=== PATIENT | female | born 1995 | race Hispanic/Latino ===

== ENCOUNTER 2017-12-10 18:38 | Emergency (ER) | payer SELFPAY ==
[2017-12-10 19:27] LABS: Absolute Lymphocytes (CBC) 2.5 K/uL (0.7-4.9); Absolute Monocytes 0.5 K/uL (0.1-1.3); Absolute Neutrophil 4.6 K/uL (1.8-8.0); Basophils % 0.8 % (0-1.3); Hematocrit 35.7 % (36.0-45.0); Lymphocytes % 31.6 % (15.3-44.8); MCH 30.1 pg (27.0-35.0); MCV 87.4 fL (80-100); MPV 9.3 fL (7.6-11.3); Monocytes % 5.8 % (3.3-12.3); RBC Red Blood Cell Count 4.08 M/uL (3.86-4.86)
[2017-12-10] MEDS ORDERED: PROMETHAZINE 25 MG/ML VIAL ONE (19:28)
[2017-12-10] MEDS ORDERED: MEPERIDINE HCL 25 MG/0.5 ML ONE (19:28)
[2017-12-10 19:48] LABS: BUN Blood Urea Nitrogen 9 mg/dL (7-18); Bicarbonate 28 mmol/L (21-32); Glucose Level 91 mg/dL (74-106); HCG, Quantitative 5082 mIU/mL (1-3); Potassium 3.7 mmol/L (3.5-5.1); Sodium Level 140 mmol/L (136-145)
[2017-12-10 20:03] LABS: Urine Blood 3+ (NEG); Urine Glucose NEGATIVE (NEG); Urine Protein 2+ (NEG); Urine Specific Gravity 1.015 (1.005-1.030)
--- NOTE | 2017-12-10 20:29 | RAD REPORT ---
EXAM DESCRIPTION: US - Transvaginal OB - 12/10/2017 8:04 pm CLINICAL HISTORY: Abdominal pain, vaginal bleeding, positive test COMPARISON: December 02 FINDINGS: A 5 week 3 day sized gestational sac is identified irregular in shape. There is a yolk sac now identified but no pole. Small subchorionic hemorrhage remains. No other hematoma, mass or suspicious finding within the endometrial cavity. Both ovaries are identified and show normal blood f low on Doppler evaluation. An 8 millimeter cyst seen in the left ovary. No suspicious adnexal finding . IMPRESSION: A 5 week 3 day sized irregular gestational sac seen now with yolk sac but no pole. Development of the yolk sac is progression from December 02; however, the sac has not progressed in size as expected for 8 day interval between studies. No new or enlarging hemorrhage within the uterus and no suspicious adnexal finding.
--- NOTE | 2017-12-10 22:04 | ER ---
Nurse's Notes [facility] Name: Carlota Rock Age: 22 yrs Sex: Female : 1995 Arrival Date: 12/10/2017 Time: 18:43 Bed 17 Private MD: Diagnosis: Spontaneous Presentation: 12/10 18:47 Presenting complaint: Patient states: lower abd pain and vaginal bleeding since 11/29/17. Pt reports she is currently 5 weeks and 5 days , and was seen by Dr. Isabel yesterday, had an ultrasound, was told that the baby was there, but unsure whether or not if she is having a miscarriage and still has unexplained bleeding. Given Amoxicillin for unknown infection. Transition of care: patient was not received from another setting of care. Onset of symptoms was November 29, 2017. Risk Assessment: Do you want to hurt yourself or someone else? Patient reports no desire to harm self or others. Initial Sepsis Screen: Does the patient meet any 2 criteria? No. Patient's initial sepsis screen is negative. Does the patient have a suspected source of infection? No. Patient's initial sepsis screen is negative. Care prior to arrival: None. 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 - Social history:: Smoking status: Patient/guardian denies using tobacco. - Ebola Screening: : Patient denies exposure to infectious person Patient denies travel to an Ebola-affected area in the 21 days before illness onset. Screenin:10 Abuse screen: Denies threats or abuse. Denies injuries from another. Nutritional ch screening: No deficits noted. Tuberculosis screening: No symptoms or risk factors identified. Fall Risk None identified. Assessment: 18:55 : Reports pain in right in left in suprapubic area vaginal bleeding that is bright ch red, moderate flow. 19:10 General: Appears in no apparent distress. comfortable, Behavior is calm, cooperative, ch appropriate for age. Pain: Complains of pain in suprapubic area, right lower quadrant, left lower quadrant and pelvis Pain currently is 10 out of 10 on a pain scale. Pain began suddenly. Neuro: No deficits noted. Respiratory: Airway is patent Respiratory effort is even, unlabored, Respiratory pattern is regular, Breath sounds are clear bilaterally. GI: Abdomen is round non-distended, Bowel sounds present X 4 quads. Abd is soft X 4 quads Abdomen is tender to palpation in suprapubic area, right lower quadrant and left lower quadrant. 19:22 Reassessment: Patient appears in no apparent distress at this time. No changes from [facility] previously documented assessment. Patient and/or family updated on plan of care and expected duration. Pain level reassessed. Patient is alert, oriented x 3, equal unlabored respirations, skin warm/dry/pink. pt to ultrasound. 19:22 Obstetrical Assessment: Patient reports Abdominal pain. jd3 20:04 Reassessment: pt back from Ultrasound. jd3 20:21 Reassessment: Patient appears in no apparent distress at this time. Patient and/or jd3 family updated on plan of care and expected duration. Pain level reassessed. Patient is alert, oriented x 3, equal unlabored respirations, skin warm/dry/pink. 22:01 Reassessment: Patient appears in no apparent distress at this time. Patient and/or jd3 family updated on plan of care and expected duration. Pain level reassessed. Patient is alert, oriented x 3, equal unlabored respirations, skin warm/dry/pink. Patient states feeling better. 22:26 Reassessment: Patient appears in no apparent distress at this time. Patient and/or jd3 family updated on plan of care and expected duration. Pain level reassessed. Patient is alert, oriented x 3, equal unlabored respirations, skin warm/dry/pink. pt reported understanding of discharge instructions, even and steady gait upon discharge. Patient states feeling better. Vital Signs: 18:51 BP 123 / 80; Pulse 87; Resp 20; Temp 98.6; Pulse Ox 100% on R/A; Pain 7/10; ss 19:30 BP 109 / 67; Pulse 67; Resp 18 S; Pulse Ox 100% on R/A; jd3 20:20 BP 114 / 69; Pulse 78; Resp 16 S; Pulse Ox 98% on R/A; jd3 22:01 BP 106 / 60; Pulse 70; Resp 17 S; Pulse Ox 98% on R/A; jd3 Vitals: 22:24 Heart Tones none ordered. jd3 ED Course: 18:43 Patient arrived in ED. aj 18:46 Luiz Augustin PA is PHCP. hb 18:48 Yonatan Mcneill MD is Attending Physician. jr8 18:50 Triage completed. ss 18:50 Inserted saline lock: 18 gauge in left antecubital area, using aseptic technique. Blood ch collected. 18:50 Initial lab(s) drawn, by me, sent to lab. Urine collected: clean catch specimen, dixon ch blood. 18:51 Arm band placed on right wrist. ss 18:52 Radiology exam delayed due to test not completed at this time. sg3 19:10 Patient has correct armband on for positive identification. Placed in gown. Bed in low ch position. Call light in reach. Side rails up X 1. Adult w/ patient. Report given to Robin. Pulse ox on. NIBP on. 19:13 Calixto Luna, RN is Primary Nurse. jd3 20:02 Ultrasound completed. Patient tolerated well. Notified. sg3 20:03 Ultrasound completed. Notified ED Physician lisa galindo u/s. sg3 20:04 US Transvaginal Ob In Process Unspecified. EDMS 22:03 Ana Abraham MD is Referral Physician. jr8 22:22 Assist provider with pelvic exam: Set up pelvic tray. Performed by Luiz RIOS jd3 Patient tolerated well. IV discontinued, intact, bleeding controlled, No redness/swelling at site. Pressure dressing applied. Administered Medications: 20:10 Drug: Demerol 25 mg Route: IVP; Site: left antecubital; jd3 22:00 Follow up: Response: No adverse reaction jd3 20:10 Drug: Phenergan 12.5 mg Route: IVP; Site: left antecubital; jd3 22:00 Follow up: Response: No adverse reaction jd3 22:00 Drug: Rho D Immune Globulin 300 mcg Route: IM; Site: left deltoid; jd3 22:26 Follow up: Response: No adverse reaction jd3 Point of Care Testing: Urine : 22:24 hCG Reading: Positive; jjanett Outcome: 22:03 Discharge ordered by . chong 22:23 Discharged to home ambulatory, with family. jd3 22:23 Condition: stable 22:23 Discharge instructions given to patient, family, Instructed on discharge instructions, follow up and referral plans. medication usage, Demonstrated understanding of instructions, follow-up care, medications, Prescriptions given X 1. 22:27 Patient left the ED. jjanett Signatures: Dispatcher [employer] EDMS Lainey Nails, RN RN Shawnee Polanco RN RN aj Smirch, Shelby, RN RN Luiz Augustin PA PA jrShila Singleton RN RN Calixto Valdivia RN RN Adilia Bryant sg3 Corrections: (The following items were deleted from the chart) 18:52 18:47 Acuity: ИВАН 2 ss ss 19:58 19:57 BP 109 / 67; Pulse 67bpm; Resp 18bpm; Spontaneous; Pulse Ox 100% RA; jd3 jjanett
--- NOTE | 2017-12-10 22:04 | EDPHYS ---
Physician Documentation [facility] Name: Carlota Rock Age: 22 yrs Sex: Female : 1995 Arrival Date: 12/10/2017 Time: 18:43 Bed 17 Private MD: ED Physician Yonatan Mcneill HPI: 12/10 19:09 This 22 yrs old Female presents to ER via Carried with complaints of Pelvic jr8 Pain, Vaginal Bleeding, + Preg <12wks. 19:09 The patient presents to the emergency department with abdominal pain, of the suprapubic jr8 area, that started 7 day(s) ago, vaginal bleeding, that is moderate. The estimated gestational age is 6 weeks. Associated signs and symptoms: The patient has no apparent associated signs or symptoms. The patient has not experienced similar symptoms in the past. The patient has been recently seen by a physician:. Patient has been having bleeding and pain since about a week ago. Stated that she continues to bleed and is now having worsening of cramping . 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 - Social history:: Smoking status: Patient/guardian denies using tobacco. - Ebola Screening: : Patient denies exposure to infectious person Patient denies travel to an Ebola-affected area in the 21 days before illness onset. ROS: 19:09 Eyes: Negative for injury, pain, redness, and discharge, ENT: Negative for injury, jr8 pain, and discharge, Neck: Negative for injury, pain, and swelling, Cardiovascular: Negative for chest pain, palpitations, and edema, Respiratory: Negative for shortness of breath, cough, wheezing, and pleuritic chest pain, Abdomen/GI: Negative for abdominal pain, nausea, vomiting, diarrhea, and constipation, Back: Negative for injury and pain, MS/Extremity: Negative for injury and deformity, Skin: Negative for injury, rash, and discoloration, Neuro: Negative for headache, weakness, numbness, tingling, and seizure. 19:09 : Positive for pelvic pain, vaginal bleeding. Exam: 19:09 Eyes: Pupils equal round and reactive to light, extra-ocular motions intact. Lids and jr8 lashes normal. Conjunctiva and sclera are non-icteric and not injected. Cornea within normal limits. Periorbital areas with no swelling, redness, or edema. ENT: Nares patent. No nasal discharge, no septal abnormalities noted. Tympanic membranes are normal and external auditory canals are clear. Oropharynx with no redness, swelling, or masses, exudates, or evidence of obstruction, uvula midline. Mucous membranes moist. Neck: Trachea midline, no thyromegaly or masses palpated, and no cervical lymphadenopathy. Supple, full range of motion without nuchal rigidity, or vertebral point tenderness. No Meningismus. Cardiovascular: Regular rate and rhythm with a normal S1 and S2. No gallops, murmurs, or rubs. Normal PMI, no JVD. No pulse deficits. Respiratory: Lungs have equal breath sounds bilaterally, clear to auscultation and percussion. No rales, rhonchi or wheezes noted. No increased work of breathing, no retractions or nasal flaring. Back: No spinal tenderness. No costovertebral tenderness. Full range of motion. Skin: Warm, dry with normal turgor. Normal color with no rashes, no lesions, and no evidence of cellulitis. MS/ Extremity: Pulses equal, no cyanosis. Neurovascular intact. Full, normal range of motion. Neuro: Awake and alert, GCS 15, oriented to person, place, time, and situation. Cranial nerves II-XII grossly intact. Motor strength 5/5 in all extremities. Sensory grossly intact. Cerebellar exam normal. Normal gait. 19:09 Abdomen/GI: Inspection: abdomen appears normal, Bowel sounds: active, all quadrants, Palpation: soft, in all quadrants, moderate abdominal tenderness, in the suprapubic area, rebound tenderness, is not appreciated, voluntary guarding, is not appreciated, involuntary guarding, is not appreciated, no appreciated organomegaly, Indicators: McBurney's point is not tender, Jones's sign is negative, Rovsing's sign is negative, Liver: no appreciated palpable abnormalities, tenderness, is not appreciated. 22:02 : Pelvic Exam: External exam: is normal, Speculum exam: mild bleeding, no cervicitis, jr8 no tissue in cervix is seen, no tissue in vagina is seen, the nurse was present for the exam. Vital Signs: 18:51 BP 123 / 80; Pulse 87; Resp 20; Temp 98.6; Pulse Ox 100% on R/A; Pain 7/10; ss 19:30 BP 109 / 67; Pulse 67; Resp 18 S; Pulse Ox 100% on R/A; jd3 20:20 BP 114 / 69; Pulse 78; Resp 16 S; Pulse Ox 98% on R/A; jd3 22:01 BP 106 / 60; Pulse 70; Resp 17 S; Pulse Ox 98% on R/A; jd3 MDM: 18:48 Patient medically screened. 8 21:03 Data reviewed: vital signs, nurses notes, lab test result(s), radiologic studies, jr8 ultrasound. Data interpreted: Pulse oximetry: on room air is 98 %. Interpretation: normal. Counseling: I had a detailed discussion with the patient and/or guardian regarding: the historical points, exam findings, and any diagnostic results supporting the discharge/admit diagnosis. 21:58 ED course: Discussed case with Dr. Abraham. Stated that we could give options to wait and jr8 let her go through naturally or could use cytotec. Family and patient wishes to let it pass naturally at this time. Close return precautions given to both patient and family. Otherwise to f/u with Dr. Sepulveda on Wednesday or Dr. Abraham on . Family is good with this and will follow insturctions. 12/10 18:48 Order name: Quantitative Hcg; Complete Time: 20:17 [facility] 12/10 18:48 Order name: Abo/rh Typing [facility] 12/10 18:48 Order name: Basic Metabolic Panel; Complete Time: 20:17 [facility] 12/10 18:48 Order name: CBC with Diff; Complete Time: 20:17 [facility] 12/10 19:14 Order name: Urine Dipstick--Ancillary (enter results); Complete Time: 20:17 [facility] 12/10 19:14 Order name: Urine --Ancillary (enter results); Complete Time: 20:17 [facility] 12/10 18:48 Order name: US Transvaginal Ob; Complete Time: 20:34 [facility] 12/10 21:09 Order name: Rh Typing [facility] 12/10 21:09 Order name: Antibody Screen [facility] 12/10 21:09 Order name: Fetalscreen [facility] 12/10 21:09 Order name: Cord Rh type [facility] 12/10 21:09 Order name: Rhogam [facility] 12/10 18:48 Order name: Urine Test (obtain specimen); Complete Time: 19:03 [facility] 12/10 18:48 Order name: IV Saline Lock; Complete Time: 19:03 [facility] 12/10 18:48 Order name: Labs collected and sent; Complete Time: 19:03 [facility] 12/10 18:48 Order name: NPO; Complete Time: 19:16 [facility] 12/10 18:48 Order name: Urine Dipstick-Ancillary (obtain specimen); Complete Time: 19:03 Administered Medications: 20:10 Drug: Demerol 25 mg Route: IVP; Site: left antecubital; jd3 22:00 Follow up: Response: No adverse reaction jd3 20:10 Drug: Phenergan 12.5 mg Route: IVP; Site: left antecubital; jd3 22:00 Follow up: Response: No adverse reaction jd3 22:00 Drug: Rho D Immune Globulin 300 mcg Route: IM; Site: left deltoid; jd3 22:26 Follow up: Response: No adverse reaction jd3 Point of Care Testing: Urine : 22:24 hCG Reading: Positive; jd3 Disposition: 12/10/17 22:03 Discharged to Home. Impression: Spontaneous . - Condition is Stable. - Discharge Instructions: Miscarriage. - Prescriptions for Tylenol- Codeine #3 300-30 mg Oral Tablet - take 2 tablet by ORAL route every 6 hours As needed; 30 tablet. - Medication Reconciliation Form, Thank You Letter, Antibiotic Education, Prescription Opioid Use form. - Follow up: Ana Abraham MD; When: 1 week; Reason: Recheck today's complaints, Continuance of care, Re-evaluation by your physician. - Problem is new. - Symptoms have improved. Addendum: 12/14/2017 07:11 Co-signature as Attending Physician, Yonatan Mcneill MD. r n Signatures: Dispatcher [employer] Lainey De La Cruz RN RN ch Nieto, Roman, MD MD rn Smirch, Shelby, RN RN Luiz Trinidad PA PA jr8 Calixto Luna RN RN jd3 Corrections: (The following items were deleted from the chart) 12/10 22:27 22:03 12/10/2017 22:03 Discharged to Home. Impression: Spontaneous . Condition jd3 is Stable. Forms are Medication Reconciliation Form, Thank You Letter, Antibiotic Education, Prescription Opioid Use. Follow up: Ana Abraham; When: 1 week; Reason: Recheck today's complaints, Continuance of care, Re-evaluation by your physician. Problem is new. Symptoms have improved. jr8
== END 2017-12-10 22:27 | disposition home or self-care (01) ==
LOC: ER 18:38
DX: O03.9 Complete or unspecified spontaneous abortion without complication (principal)
CPT/HCPCS: 36415; 76817; 80048; 81003; 81025; 84702; 85025; 86850; 86900; 86901; 96372; 96374; 96375; 99284; J2175; J2550; J2790

== ENCOUNTER 2018-01-12 19:29 | Emergency (ER) | payer SELFPAY ==
[2018-01-12] MEDS ORDERED: NA CHLORIDE 0.9% 1,000 ML ONE (20:05)
[2018-01-12] MEDS ORDERED: FENTANYL CITR 100 MCG/2 ML ONE (20:05)
[2018-01-12 20:16] LABS: Urine Blood 1+ (NEG); Urine Glucose NEGATIVE (NEG); Urine Protein NEGATIVE (NEG)
[2018-01-12 20:24] LABS: Absolute Lymphocytes (CBC) 0.8 K/uL (0.7-4.9); Absolute Monocytes 0.6 K/uL (0.1-1.3); Absolute Neutrophil 11.1 K/uL (1.8-8.0); Basophils % 0.3 % (0-1.3); Eosinophils % 0.1 % (0-4.4); Hematocrit 34.6 % (36.0-45.0); Lymphocytes % 6.4 % (15.3-44.8); MCH 30.2 pg (27.0-35.0); MPV 9.2 fL (7.6-11.3); Monocytes % 4.9 % (3.3-12.3); RBC Red Blood Cell Count 3.93 M/uL (3.86-4.86)
[2018-01-12 20:30] LABS: Urine Bacteria NONE SEEN /HPF (<20); Urine RBC <5 /HPF (NONE SEEN)
[2018-01-12 20:31] LABS: Urine Culture Reflex Order NOT NEEDED
[2018-01-12 20:42] LABS: BUN Blood Urea Nitrogen 6 mg/dL (7-18); Bicarbonate 27 mmol/L (21-32); Glucose Level 98 mg/dL (74-106); HCG, Quantitative 206 mIU/mL (1-3); Potassium 3.6 mmol/L (3.5-5.1); Sodium Level 139 mmol/L (136-145)
--- NOTE | 2018-01-12 21:23 | RAD REPORT ---
EXAM DESCRIPTION: US - Transvaginal Study Probe - 01/12/2018 9:16 pm CLINICAL HISTORY: VAGINAL BLEEDING Pelvic pain. COMPARISON: Transvaginal OB dated 12/10/2017; Transvaginal OB dated 12/02/2017 FINDINGS: A small, irregularly shaped gestational sac is noted, however positioned in the lower uter ine segment/cervical region. This likely represents an inevitable . No yolk sac or embryo is seen. Both ovaries are normal in size, shape and echotexture. The right ovary measures 2.6 x 1.6 x 1.4 cm. The left ovary measures 2.8 x 2.7 x 2.2 cm. No ovarian or parovarian lesions. No adnexal masses. Normal Doppler blood flow was demonstrated to both ovaries. Small amount pelvic free fluid noted. IMPRESSION: Inevitable is suspected.
[2018-01-12 21:25] LABS: Blood Morphology Comment NOT SEEN (NOT SEEN); Platelet Estimate ADEQ; Urine White Blood Cell Casts OK
--- NOTE | 2018-01-12 21:54 | ER ---
Nurse's Notes [facility] Name: Carlota Rock Age: 22 yrs Sex: Female : 1995 Arrival Date: 01/12/2018 Time: 19:31 Bed 14 Private MD: Robert Atkinson B Diagnosis: Incomplete spontaneous without complication Presentation: 01/12 19:36 Presenting complaint: Patient states: Reports fever and pelvic pain that started this aj AM suddenly. Patient reports continued vaginal bleeding since spontaneous 1 month ago. Transition of care: patient was not received from another setting of care. Onset of symptoms was January 12, 2018. Risk Assessment: Do you want to hurt yourself or someone else? Patient reports no desire to harm self or others. Initial Sepsis Screen: Does the patient meet any 2 criteria? No. Patient's initial sepsis screen is negative. Does the patient have a suspected source of infection? No. Patient's initial sepsis screen is negative. Care prior to arrival: None. 19:36 Method Of Arrival: Ambulatory aj 19:36 Acuity: ИВАН 3 aj Triage Assessment: 19:38 General: Appears in no apparent distress. uncomfortable, Behavior is calm, cooperative, aj appropriate for age. Pain: Complains of pain in pelvis. Neuro: Level of Consciousness is awake, alert, obeys commands, Oriented to person, place, time, situation, Appropriate for age. Respiratory: Airway is patent Respiratory effort is even, unlabored, Respiratory pattern is regular, symmetrical. GI: No signs and/or symptoms were reported involving the gastrointestinal system. : Reports pain in suprapubic area. Derm: Skin is intact, is healthy with good turgor, Skin is pink, warm \T\ dry. normal. 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 - Social history:: Smoking status: Patient/guardian denies using tobacco. - Ebola Screening: : Patient negative for fever greater than or equal to 101.5 degrees Fahrenheit, and additional compatible Ebola Virus Disease symptoms Patient denies exposure to infectious person Patient denies travel to an Ebola-affected area in the 21 days before illness onset No symptoms or risks identified at this time. Screenin:57 Abuse screen: Denies threats or abuse. Nutritional screening: No deficits noted. ea Tuberculosis screening: No symptoms or risk factors identified. Fall Risk None identified. Assessment: 19:52 General: Appears uncomfortable, Behavior is calm, cooperative, appropriate for age. ea Pain: Complains of pain in suprapubic area Pain radiates to lumbar area, low back area and left low back Pain currently is 8 out of 10 on a pain scale. Quality of pain is described as aching, crampy. Neuro: Level of Consciousness is awake, alert, obeys commands, Oriented to person, place, time, situation. Cardiovascular: Heart tones S1 S2 present Patient's skin is warm and dry. Respiratory: Airway is patent Respiratory effort is even, unlabored, Respiratory pattern is regular, symmetrical, Breath sounds are clear bilaterally. GI: Bowel sounds present X 4 quads. Abd is soft and non tender X 4 quads. Derm: Skin is pink, warm \T\ dry. 20:55 Reassessment: Patient appears in no apparent distress at this time. No changes from jd3 previously documented assessment. Patient and/or family updated on plan of care and expected duration. Pain level reassessed. Patient is alert, oriented x 3, equal unlabored respirations, skin warm/dry/pink. 22:05 Reassessment: Patient appears in no apparent distress at this time. Patient and/or d3 family updated on plan of care and expected duration. Pain level reassessed. Patient is alert, oriented x 3, equal unlabored respirations, skin warm/dry/pink. Patient states feeling better. Vital Signs: 19:38 BP 109 / 71; Pulse 97; Resp 20; Temp 98.9; Pulse Ox 98% on R/A; Weight 54.43 kg; Height aj 5 ft. 7 in. (170.18 cm); Pain 9/10; 20:54 BP 117 / 96; Pulse 80; Resp 19 S; Pulse Ox 99% on R/A; jd3 22:04 BP 105 / 61; Pulse 77; Resp 16 S; Pulse Ox 100% on R/A; jd3 19:38 Body Mass Index 18.79 (54.43 kg, 170.18 cm) ED Course: 19:31 Patient arrived in ED. am2 19:31 Robert Atkinson MD is Private Physician. am2 19:37 Triage completed. aj 19:38 Arm band placed on left wrist. Patient placed in an exam room. aj 19:41 Bubba Shaw MD is Attending Physician. gs 19:46 Loreto Villarreal RN is Primary Nurse. ea 19:57 Patient has correct armband on for positive identification. Bed in low position. Call ea light in reach. Side rails up X2. 20:15 Inserted saline lock: 20 gauge in right antecubital area, using aseptic technique. ea Blood collected. 21:14 Transvaginal Study Probe In Process Unspecified. EDMS 21:19 Ultrasound completed. Patient tolerated well. aa4 21:52 Robert Atkinson MD is Referral Physician. gs 22:04 No provider procedures requiring assistance completed. IV discontinued, intact, jd3 bleeding controlled, No redness/swelling at site. Pressure dressing applied. Administered Medications: 20:17 Drug: NS 0.9% 1000 ml Route: IV; Rate: 1 bolus; Site: right antecubital; ea 22:03 Follow up: Response: No adverse reaction; IV Status: Completed infusion; IV Intake: jd3 1000ml 20:17 Drug: fentaNYL (PF) 25 mcg Route: IVP; Site: right antecubital; ea 20:58 Follow up: Response: No adverse reaction; Pain is decreased jd3 Intake: 22:03 IV: 1000ml; Total: 1000ml. jd3 Outcome: 21:53 Discharge ordered by . 22:05 Discharged to home ambulatory, with family. jd3 22:05 Condition: stable 22:05 Discharge instructions given to patient, family, Instructed on discharge instructions, follow up and referral plans. medication usage, Demonstrated understanding of instructions, follow-up care, medications, Prescriptions given X 1. 22:07 Patient left the ED. jd3 Signatures: Dispatcher [employer] EDMS Shawnee Garcia, RN Shawnee Perez aa4 Shawnee Diza am2 Loreto Villarreal RN RN ea Starr, Gregory, MD MD gs Davies, Jonathon, RN RN jd3
--- NOTE | 2018-01-12 21:54 | EDPHYS ---
Physician Documentation [facility] Name: Carlota Rock Age: 22 yrs Sex: Female : 1995 Arrival Date: 01/12/2018 Time: 19:31 Bed 14 Private MD: Robert Lakhani B ED Physician Bubba Shaw HPI: 01/12 21:38 This 22 yrs old Female presents to ER via Ambulatory with complaints of gs Abdominal Pain, Vaginal Bleeding, Fever. 21:38 The patient presents with pelvic pain, the pain radiates to the low back area. Onset: gs The symptoms/episode began/occurred this morning. Modifying factors: The symptoms are alleviated by nothing, the symptoms are aggravated by nothing. Associated signs and symptoms: Pertinent positives: vaginal bleeding, mild. Severity of symptoms: At their worst the symptoms were moderate, in the emergency department the symptoms are unchanged. The patient has experienced a previous episode, being seen for miscarriage over past month getting blood draws through dr lakhani. 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 - Social history:: Smoking status: Patient/guardian denies using tobacco. - Ebola Screening: : Patient negative for fever greater than or equal to 101.5 degrees Fahrenheit, and additional compatible Ebola Virus Disease symptoms Patient denies exposure to infectious person Patient denies travel to an Ebola-affected area in the 21 days before illness onset No symptoms or risks identified at this time. ROS: 21:38 Constitutional: Positive for fever, says last time took tylenol was 1pm. gs 21:38 : Negative for vaginal discharge. 21:38 All other systems are negative. Exam: 21:38 Head/Face: Normocephalic, atraumatic. Eyes: Pupils equal round and reactive to light, gs extra-ocular motions intact. Lids and lashes normal. Conjunctiva and sclera are non-icteric and not injected. Cornea within normal limits. Periorbital areas with no swelling, redness, or edema. ENT: Nares patent. No nasal discharge, no septal abnormalities noted. Tympanic membranes are normal and external auditory canals are clear. Oropharynx with no redness, swelling, or masses, exudates, or evidence of obstruction, uvula midline. Mucous membranes moist. Neck: Trachea midline, no thyromegaly or masses palpated, and no cervical lymphadenopathy. Supple, full range of motion without nuchal rigidity, or vertebral point tenderness. No Meningismus. Chest/axilla: Normal chest wall appearance and motion. Nontender with no deformity. No lesions are appreciated. Cardiovascular: Regular rate and rhythm with a normal S1 and S2. No gallops, murmurs, or rubs. Normal PMI, no JVD. No pulse deficits. Respiratory: Lungs have equal breath sounds bilaterally, clear to auscultation and percussion. No rales, rhonchi or wheezes noted. No increased work of breathing, no retractions or nasal flaring. Skin: Warm, dry with normal turgor. Normal color with no rashes, no lesions, and no evidence of cellulitis. MS/ Extremity: Pulses equal, no cyanosis. Neurovascular intact. Full, normal range of motion. Neuro: Awake and alert, GCS 15, oriented to person, place, time, and situation. Cranial nerves II-XII grossly intact. Motor strength 5/5 in all extremities. Sensory grossly intact. Cerebellar exam normal. Normal gait. 21:38 Constitutional: The patient appears alert, awake, uncomfortable. 21:38 Abdomen/GI: Palpation: moderate abdominal tenderness, in the suprapubic area. gs 21:38 Back: CVA tenderness, that is mild, is noted on the right. Vital Signs: 19:38 BP 109 / 71; Pulse 97; Resp 20; Temp 98.9; Pulse Ox 98% on R/A; Weight 54.43 kg; Height aj 5 ft. 7 in. (170.18 cm); Pain 9/10; 20:54 BP 117 / 96; Pulse 80; Resp 19 S; Pulse Ox 99% on R/A; jd3 22:04 BP 105 / 61; Pulse 77; Resp 16 S; Pulse Ox 100% on R/A; jd3 19:38 Body Mass Index 18.79 (54.43 kg, 170.18 cm) aj MDM: 19:54 Patient medically screened. gs 21:38 Differential diagnosis: ectopic , retained Ab, septic Ab. Data reviewed: vital gs signs, nurses notes. Physician consultation: Robert Lakhani MD regarding consult, patient's condition, dr lakhani said isnt septic ab no fever minimal wbc elevation doesn't need abx, bleeding is minimal and may rx cytotec if continues. discussed add'l rhogam dr lakhani says unnecessary., and will see patient in office, tomorrow. 01/12 19:43 Order name: Urine Microscopic Only; Complete Time: 20:40 01/12 19:55 Order name: CBC with Diff; Complete Time: 21:29 01/12 19:55 Order name: BMP; Complete Time: 21:15 01/12 19:55 Order name: Type And Screen 01/12 19:55 Order name: Quantitative Hcg; Complete Time: 21:15 01/12 20:02 Order name: Urine Dipstick--Ancillary (enter results); Complete Time: 20:40 [facility] 01/12 19:43 Order name: Urine Test (obtain specimen); Complete Time: 19:45 01/12 20:02 Order name: Urine --Ancillary (enter results); Complete Time: 20:40 [facility] 01/12 20:26 Order name: CBC Smear Scan EDSC 01/12 21:14 Order name: Transvaginal Study Probe; Complete Time: 21:24 [facility] 01/12 21:25 Order name: Manual Differential; Complete Time: 21:29 [facility] 01/12 19:43 Order name: Urine Dipstick-Ancillary (obtain specimen); Complete Time: 19:45 Administered Medications: 20:17 Drug: NS 0.9% 1000 ml Route: IV; Rate: 1 bolus; Site: right antecubital; ea 22:03 Follow up: Response: No adverse reaction; IV Status: Completed infusion; IV Intake: jd3 1000ml 20:17 Drug: fentaNYL (PF) 25 mcg Route: IVP; Site: right antecubital; ea 20:58 Follow up: Response: No adverse reaction; Pain is decreased jd3 Disposition: 01/12/18 21:53 Discharged to Home. Impression: Incomplete spontaneous without complication. - Condition is Stable. - Discharge Instructions: Incomplete Miscarriage. - Prescriptions for Cytotec 100 mcg Oral tablet - take 1 tablet by ORAL route 4 times per day; 12 tablet. - Medication Reconciliation Form, Thank You Letter, Antibiotic Education, Prescription Opioid Use form. - Follow up: Robert Lakhani MD; When: Tomorrow. Signatures: Dispatcher [employer] EDSC Shawnee Garcia RN RN aj Antunez, Elena, RN RN ea Starr, Gregory, MD MD gs Davies, Jonathon, RN RN jd3 Corrections: (The following items were deleted from the chart) 21:14 19:55 Pelvis Complete+[id number].[email or web address].BRZ ordered. EDSC EDMS 21:44 21:38 Head/Face: Normocephalic, atraumatic. Eyes: Pupils equal round and reactive to gs light, extra-ocular motions intact. Lids and lashes normal. Conjunctiva and sclera are non-icteric and not injected. Cornea within normal limits. Periorbital areas with no swelling, redness, or edema. ENT: Nares patent. No nasal discharge, no septal abnormalities noted. Tympanic membranes are normal and external auditory canals are clear. Oropharynx with no redness, swelling, or masses, exudates, or evidence of obstruction, uvula midline. Mucous membranes moist. Neck: Trachea midline, no thyromegaly or masses palpated, and no cervical lymphadenopathy. Supple, full range of motion without nuchal rigidity, or vertebral point tenderness. No Meningismus. Chest/axilla: Normal chest wall appearance and motion. Nontender with no deformity. No lesions are appreciated. Cardiovascular: Regular rate and rhythm with a normal S1 and S2. No gallops, murmurs, or rubs. Normal PMI, no JVD. No pulse deficits. Respiratory: Lungs have equal breath sounds bilaterally, clear to auscultation and percussion. No rales, rhonchi or wheezes noted. No increased work of breathing, no retractions or nasal flaring. Abdomen/GI: Soft, non-tender, with normal bowel sounds. No distension or tympany. No guarding or rebound. No evidence of tenderness throughout. Back: No spinal tenderness. No costovertebral tenderness. Full range of motion. Skin: Warm, dry with normal turgor. Normal color with no rashes, no lesions, and no evidence of cellulitis. MS/ Extremity: Pulses equal, no cyanosis. Neurovascular intact. Full, normal range of motion. Neuro: Awake and alert, GCS 15, oriented to person, place, time, and situation. Cranial nerves II-XII grossly intact. Motor strength 5/5 in all extremities. Sensory grossly intact. Cerebellar exam normal. Normal gait. 22:07 21:53 01/12/2018 21:53 Discharged to Home. Impression: Incomplete spontaneous jd3 without complication. Condition is Stable. Forms are Medication Reconciliation Form, Thank You Letter, Antibiotic Education, Prescription Opioid Use. Follow up: Robert Lakhani; When: Tomorrow. gs
== END 2018-01-12 22:07 | disposition home or self-care (01) ==
LOC: ER 19:29
DX: O03.4 Incomplete spontaneous abortion without complication (principal)
CPT/HCPCS: 36415; 76830; 80048; 81003; 81015; 81025; 84702; 85025; 86850; 86870; 86900; 86901; 96361; 96374; 99284; J3010; J7030